=== PATIENT | female | born 1980 | race Caucasian/White ===

== ENCOUNTER → 2016-04-13 | Outpatient (CLI) | payer OTHER ==
[~2016-04-13] MED LIST: CALC500C3; PRENTAB69 PO
[2016-04-13 10:12] LABS: BASO % 0.6 %; BASO ABS # 0.03 K/uL (0-0.2); COMPLETE YES; EOS % 1.2 %; HEMATOCRIT 39.6 % (37-47); LYMPH % 28.7 %; LYMPH ABS # 1.46 K/uL (1.2-3.4); MEAN CELL VOLUME 87.8 fL (80-100); MEAN CORPUSCULAR HEMOGLOBIN 29.9 pg (25-34); MEAN CORPUSCULAR HGB CONC 34.1 g/dl (32-36); MEAN PLATELET VOLUME 10.3 fL (7.4-10.4); MONO % 7.7 %; NEUT % 61.8 %; PLATELET COUNT 281 K/uL (130-400); RED BLOOD COUNT 4.51 M/uL (4.2-5.4); WHITE BLOOD COUNT 5.08 K/uL (4.8-10.8)
[2016-04-13 10:30] LABS: THYROID STIMULATING HORMONE 1.18 uIu/ml (0.300-4.500)
[2016-04-13 12:19] LABS: LYME DISEASE AB IGG NEG (NEG); LYME DISEASE AB IGM NEG (NEG)
== END | disposition home or self-care (01) ==
LOC: C.LAB1850 08:58
PROVIDERS: ATTEND Internal Medicine
DX: M25.50 Pain in unspecified joint (principal); D64.9 Anemia, unspecified

== ENCOUNTER → 2016-12-31 | Outpatient (CLI) | payer OTHER | END | disposition home or self-care (01) | LOC: C.PAPS 14:21 | PROVIDERS: ATTEND Obstetrics & Gynecology | DX: Z12.4 Encounter for screening for malignant neoplasm of cervix (principal) ==